=== PATIENT | female | born 1950 | race Caucasian/White ===

== ENCOUNTER 2016-10-27 09:54 | Emergency (ER) | payer OTHER, MEDICARE ==
[2016-10-27] MEDS ORDERED: NS 1,000 ML IV ONE (10:15)
[2016-10-27 10:17] LABS: ADD DIFF? NO; ADD MORPH? NO; ATYPICAL LYMPHOCYTE FLAG 20 (0-99); FRAGMENT RBC FLAG 0 (0-99); LEFT SHIFT FLG 20 (0-99); LIPEMIA HEMOLYSIS FLAG 90 (0-99); RED CELL DISTRIBUTION WIDTH 12.7 % (11.5-15.2)
[2016-10-27 10:20] LABS: % IMMATURE GRANULYOCYTES 0.4 % (0.0-1.1); ABSOLUTE IMMATURE GRANULOCYTES 0.04 10^3/uL (0.00-0.10); ADD SCAN? NO; HEMATOCRIT 38.7 % (38.0-47.0); HEMOGLOBIN 13.2 g/dL (12.6-16.3); MEAN CELL HEMOGLOBIN 29.5 pg (27.9-34.1); MEAN CELL HEMOGLOBIN CONCENTR. 34.1 g/dL (32.4-36.7); MEAN CELL VOLUME 86.4 fL (81.5-99.8); MEAN PLATELET VOLUME 8.8 fL (8.7-11.7); PLATELET CLUMPS FLAG 0 (0-99); PLATELET COUNT 401 10^3/uL (150-400); RED BLOOD CELL COUNT 4.48 10^6/uL (4.18-5.33)
[2016-10-27 10:29] LABS: ANION GAP 12 mEq/L (8-16); CALCIUM 8.9 mg/dL (8.5-10.4); CARBON DIOXIDE 25 mEq/l (22-31); CHLORIDE 103 mEq/L (97-110); CREATININE 0.8 mg/dL (0.6-1.0); GLOMERULAR FILTRATION RATE > 60; GLUCOSE 101 mg/dL (70-100); POTASSIUM 3.7 mEq/L (3.5-5.2); SODIUM 140 mEq/L (134-144)
--- NOTE | 2016-10-27 11:20 | EDPHY ---
H & P Stated Complaint: Diarrhea x 9 days. Denies abdominal pain. Time Seen by Provider: 10/27/16 10:07 HPI/ROS: CHIEF COMPLAINT: Diarrhea HISTORY OF PRESENT ILLNESS: This is a 65-year-old female with a history of GERD , hiatal hernia, and irritable bowel syndrome. She presents complaining of 9 days of diarrhea. The diarrhea has been profuse and persistent, worse at night. She has been using Imodium with minimal success. 5 days ago she saw a provider in her primary care office who thought that she likely had a viral diarrhea. She was advised to continue with symptomatic treatment, which she has done. Yesterday she was seen at urgent care. She reports continued diarrhea with 4 bouts of diarrhea since midnight today. Her stool is soft or liquid. She has not had abdominal pain. She has not seen blood in the stool. She has constant bloating which is unchanged. She denies vomiting. She has had some chills and subjective fever. She has had no recent travel. She has not been camping or drinking from a [place]. No known exposures. No antibiotic use. In March of this year she had 4 days of liquid stool that improved with Imodium. Three weeks later she again had a shorter bout of diarrhea that also improved with Imodium. REVIEW OF SYSTEMS: A ten point review of systems was performed and is negative with the exception of the items mentioned in the HPI. Recent cough, worse in the morning. She has been diagnosed with bronchitis by her primary care physician. She denies chest pain or shortness of breath. - Personal History Current Tetanus/Diphtheria Vaccine: No Current Tetanus Diphtheria and Acellular Pertussis (TDAP): No - Medical/Surgical History Hx Asthma: No Hx Chronic Respiratory Disease: No Hx Diabetes: No Hx Cardiac Disease: No Hx Renal Disease: No Hx Cirrhosis: No Hx Alcoholism: No Hx HIV/AIDS: No Hx Splenectomy or Spleen Trauma: No Other PMH: IBS, GERD, hiatal hernia, stenosis of neck and back - Social History Smoking Status: Never smoked Alcohol Use: None Drug Use: None Additional Social History: She lives alone. - Physical Exam Exam: General Appearance: Alert. Vital signs reviewed. Heart rate 106 at triage. Blood pressure 116/92. Temperature 37.8 centigrade. Eyes: Pupils equal and round, no conjunctival injection, no discharge. Anicteric. ENT, Mouth: Mucous membranes are moist, no oropharyngeal erythema or edema. Neck: No lymphadenopathy, supple. Respiratory: Lungs are clear to auscultation; no wheezes, rales, or rhonchi. Cardiovascular: Tachycardia, no murmur, rub, or gallop. Gastrointestinal: Abdomen is soft and nontender, no masses or organomegaly, bowel sounds normal. Skin: Warm and dry, no rashes on exposed skin, normal color. Back: Nontender to palpation over the thoracolumbar spine. No CVAT. Extremities: No lower extremity edema, no calf tenderness or swelling. Neurological: Alert and oriented. Moving all four extremities easily and equally. Psychiatric: Normal affect. Constitutional: Initial Vital Signs Temperature (C) 37.8 C 10/27/16 09:55 Heart Rate 106 H 10/27/16 09:55 Respiratory Rate 18 10/27/16 09:55 Blood Pressure 116/92 H 10/27/16 09:55 O2 Sat (%) 94 10/27/16 09:55 O2 Delivery Mode Room Air Allergies/Adverse Reactions: Sulfa (Sulfonamide Antibiotics) Allergy (Unknown, Verified 10/27/16 10:10) Unknown Home Medications: Medication Instructions Recorded Diphenoxylate HCl/Atrop Sulf 1 - 2 tab PO QID PRN #16 tab 10/27/16 [Lomotil Tab (*)] Medical Decision Making ED Course/Re-evaluation: One L normal saline administered IV. CBC and chemistries reviewed. Stool sample requested. She was in the emergency department for just under 3 hours, during which time she did not have diarrhea. She thought that eating might induce diarrhea and was given some fabiola tea and some crackers but she still did not have a diarrheal stool. She was discharged home in stable condition with instructions and equipment to obtain a stool sample. She understands that this sample needs to be taken to [facility]. She is also given a prescription for Lomotil to use if needed. She does not appear toxic or dehydrated. She was very slightly tachycardic while here. She does not have abdominal pain. At this point in time I do not recommend antibiotics for treatment of her diarrhea. She is noted to have a high blood pressure reading while in the emergency department. She is advised to have this followed up with her primary care physician within the next month. Differential Diagnosis: I considered a differential diagnosis that includes but is not limited to bacterial/viral/parasitic diarrhea, Clostridium difficile, functional diarrhea, and enteritis. - Data Points Laboratory Results: Laboratory Results 10/27/16 10:05 10/27/16 10:05 10/27/16 10/27/16 10:05 10:05 WBC 9.58 10^3/uL H 10^3/uL (3.80-9.50) RBC 4.48 10^6/uL 10^6/uL (4.18-5.33) Hgb 13.2 g/dL g/dL (12.6-16.3) Hct 38.7 % % (38.0-47.0) MCV 86.4 fL fL (81.5-99.8) MCH 29.5 pg pg (27.9-34.1) MCHC 34.1 g/dL g/dL (32.4-36.7) RDW 12.7 % % (11.5-15.2) Plt Count 401 10^3/uL H 10^3/uL (150-400) MPV 8.8 fL fL (8.7-11.7) Neut % (Auto) 82.1 % H % (39.3-74.2) Lymph % (Auto) 8.2 % L % (15.0-45.0) Mcintosh % (Auto) 8.4 % % (4.5-13.0) Eos % (Auto) 0.5 % L % (0.6-7.6) Baso % (Auto) 0.4 % % (0.3-1.7) Nucleat RBC Rel Count 0.0 % % (0.0-0.2) Absolute Neuts (auto) 7.86 10^3/uL H 10^3/uL (1.70-6.50) Absolute Lymphs (auto) 0.79 10^3/uL L 10^3/uL (1.00-3.00) Absolute Monos (auto) 0.80 10^3/uL 10^3/uL (0.30-0.80) Absolute Eos (auto) 0.05 10^3/uL 10^3/uL (0.03-0.40) Absolute Basos (auto) 0.04 10^3/uL 10^3/uL (0.02-0.10) Absolute Nucleated RBC 0.00 10^3/uL 10^3/uL (0-0.01) Immature Gran % 0.4 % % (0.0-1.1) Immature Gran # 0.04 10^3/uL 10^3/uL (0.00-0.10) Sodium 140 mEq/L mEq/L (134-144) Potassium 3.7 mEq/L mEq/L (3.5-5.2) Chloride 103 mEq/L mEq/L (97-110) Carbon Dioxide 25 mEq/l mEq/l (22-31) Anion Gap 12 mEq/L mEq/L (8-16) BUN 10 mg/dL mg/dL (7-23) Creatinine 0.8 mg/dL mg/dL (0.6-1.0) Estimated GFR > 60 Glucose 101 mg/dL H mg/dL (70-100) Calcium 8.9 mg/dL mg/dL (8.5-10.4) Medications Given: Discontinued Medications Sodium Chloride (Ns) 1,000 mls @ 0 mls/hr IV ONCE ONE PRN Reason: Wide Open Stop: 10/27/16 10:16 Last Admin: 10/27/16 10:19 Dose: 1,000 mls Departure - Departure Disposition: Home, Routine, Self-Care Clinical Impression: Diarrhea Qualifiers: Diarrhea type: unspecified type Qualified Code(s): R19.7 - Diarrhea, unspecified Condition: Good Instructions: Acute Diarrhea (ED) Additional Instructions: Take her stool sample to [facility]. You can use the Lomotil, 2 tabs 4 times a day. Do not take it for more than 48 hours even if you are not better. If you have new or concerning symptoms--loss of blood in your stool, high fever , abdominal pain--you should be re-evaluated. Referrals: BONNIE CHANEL [Primary Care Provider] - As per Instructions Prescriptions: Diphenoxylate HCl/Atrop Sulf [Lomotil Tab (*)] 1 - 2 tab PO QID PRN #16 tab PRN Reason: Diarrhea/Loose Stools
[2016-10-27 12:53] VITALS: BP 155/89; PULSE 102; RESP 16; TEMP 100.6; O2SAT 93
== END 2016-10-27 12:53 | disposition home or self-care (01) ==
LOC: CED 09:54
DX: R19.7 Diarrhea, unspecified (principal)
CPT/HCPCS: 80048-PO; 85025-PO